=== PATIENT | female | born 1990 | race Two or more races ===

== ENCOUNTER 2022-05-13 06:03 | Inpatient (IN) | payer MEDICAID ==
[~2022-05-13] VITALS: Ht 170.2 cm; Wt 87.1 kg
[2022-05-13] MEDS ORDERED: BETAMETHASONE ACET (30mg/5ml) 5ml Vial 6mg/ml IM ONE (06:45)
[2022-05-13] MEDS ORDERED: PROMETHAZINE HCL 25 MG/ML 1ML IV PRN (06:45)
[2022-05-13] MEDS ORDERED: LACTATED RINGER'S 1,000 ML IV SCH (06:45)
[2022-05-13] MEDS ORDERED: LACT. RINGERS/OXYTOCIN 20UNITS 500 ML IV ONE ×2 (06:45→07:15)
[2022-05-13] MEDS ORDERED: LIDOCAINE 2%HCL (LOCAL ANESTH.) INJ 20ML MDV IJ PRN (06:45)
[2022-05-13] MEDS ORDERED: AMPICILLIN SOD 2GM INJ 2 GM in SODIUM CHL 0.9% 100 ML IV ONE (06:45)
[2022-05-13] MEDS ORDERED: BUTORPHANOL TARTRATE 2 MG/1 ML VIAL IV PRN ×2 (06:45)
[2022-05-13] MEDS ORDERED: TERBUTALINE SULFATE 1 MG/ML 1ML VIAL SC PRN (06:45)
[2022-05-13 07:51] LABS: Eosinophils # (auto) 0 10 ^3/uL (0-0.8); Hemoglobin 11.1 g/dL (12.2-16.2); Monocytes # (auto) 0.6 10 ^3/uL (0-1.3); Nucleated Red Blood Cells % 0.1 %; Red Blood Cells 4.16 10^6/uL (4.0-5.20)
[2022-05-13 07:54] LABS: Basophils # (auto) 0 10 ^3/uL (0-0.2); Basophils % (auto) 0.4 % (0.0-2.0); Hematocrit 33.6 % (36.0-46.0); Lymphocytes % (auto) 10.6 % (10.0-50.0); Mean Corpuscular Hemoglobin 26.6 pg (28.0-32.0); Mean Corpuscular Hgb Conc. 32.9 g/dL (32.0-36.0); Mean Corpuscular Volume 80.8 fL (80.0-100.0); Monocytes % (auto) 5.9 % (0.0-12.0); Neutrophils # (auto) 8.2 10 ^3/uL (1.6-8.6); Neutrophils % (auto) 83.1 % (37.0-80.0); White Blood Cell 9.8 10^3/uL (4.4-10.8)
[2022-05-13 08:04] LABS: Urine Bacteria NONE SEEN /hpf (None Seen); Urine Blood 2+ /uL (Negative); Urine Mucus FEW (None Seen); Urine Specific Gravity 1.023 (1.001-1.035); Urine WBC 13 /hpf (0 - 5)
[2022-05-13 08:09] LABS: Albumin 2.5 g/dL (3.4-5.0); Calcium 8.1 mg/dL (8.5-10.1); Potassium 3.3 mmol/L (3.5-5.1)
[2022-05-13 08:12] LABS: Alcohol, Urine < 3.0 mg/dL (0-10); Amphetamine Screen, Urine NEGATIVE (NEGATIVE); Barbiturate Scree,Urine NEGATIVE (NEGATIVE); Benzodiazephine Screen, Urine NEGATIVE (NEGATIVE); Cannabinoid Screen, Urine NEGATIVE (NEGATIVE); Cocaine Screen, Urine NEGATIVE (NEGATIVE); Opiate Scree,Urine NEGATIVE (NEGATIVE); Phencyclidine Screen, Urine NEGATIVE (NEGATIVE)
[2022-05-13 08:13] LABS: BUN/Creatinine Ratio 8.6; Bilirubin, Total 0.4 mg/dL (0.2-1.0); Total Protein 6.5 g/dL (6.4-8.2)
[2022-05-13 08:14] LABS: INR 0.95 (0.9-1.15); Partial Thromboplastin Time 33.9 sec (24.6-33.4)
[2022-05-13] MEDS ORDERED: fentaNYL CITRATE 100 MCG/2 ML VL ONE (08:59)
[2022-05-13] MEDS ORDERED: MORPHINE SULF PF 5 MG/10 ML VIAL ONE (08:59)
[2022-05-13] MEDS ORDERED: ePHEDrine SULFATE 50 MG/ML AMP IV ONE (09:00)
[2022-05-13] MEDS ORDERED: LIDOCAINE HCL 2 %PF INJ 10ML AMP IJ ONE (09:00)
[2022-05-13] MEDS ORDERED: NALOXONE HCL 0.4 MG/ML VIAL IV ONE (09:00)
[2022-05-13] MEDS ORDERED: ROPIVACAINE HCL 200 ML EPI SCH (09:00)
[2022-05-13] MEDS: PHISODERM TOP SOLN 240ML BTL TOP PRN (09:17)
[2022-05-13] MEDS: WITCH HAZEL-GLYCERIN PAD TOP PRN (09:17)
[2022-05-13] MEDS: DERMOPLAST 60ML BOTTLE TOP PRN (09:17)
[2022-05-13] MEDS ORDERED: diphenhdrAMINE HCL 50 MG/1 ML VL IV ONE (09:45)
[2022-05-13] MEDS ORDERED: NALOXONE HCL 0.4 MG/ML VIAL IV PRN ×2 (10:00)
[2022-05-13] MEDS ORDERED: HYDROmorphone HCL 2 MG/ML VL/or syr IV PRN ×2 (10:00)
[2022-05-13] MEDS ORDERED: ONDANSETRON HCL 4 MG/2 ML VIAL IV PRN ×2 (10:00)
[2022-05-13] MEDS ORDERED: AMPICILLIN INJ 1 GM in SODIUM CHL 0.9% 100 ML IV SCH (10:00)
[2022-05-13] MEDS ORDERED: NALBUPHINE HCL 10 MG/1ml INJECTION IV ONE (10:00)
[2022-05-13] MEDS ORDERED: diphenhdrAMINE HCL 50 MG/1 ML VL IV PRN ×2 (10:00)
[2022-05-13] MEDS ORDERED: METHYLERGONOVINE MALEATE 0.2 MG/ML AMP IM ONE (10:30)
[2022-05-13] MEDS ORDERED: ONDANSETRON ODT 4 MG TAB PO PRN (11:00)
[2022-05-13] MEDS ORDERED: FAMOTIDINE (10MG/ML) 2ML VL IV ONE (13:00)
[2022-05-13] MEDS ORDERED: CALCIUM CARB 500 MG CHEW TAB PO ONE (13:00)
[2022-05-13] MEDS: IBUPROFEN 600 MG TAB PO PRN ×2 (13:16→21:36)
[2022-05-13 13:38] VITALS: BP 131/71
[2022-05-13 15:00] VITALS: BP 135/75
[2022-05-13] MEDS: ACETAMINOPHEN 325 MG TAB PO PRN (17:11)
[2022-05-13 19:00] VITALS: BP 106/64
[2022-05-13] MEDS: DOCUSATE SOD 100 MG CAP PO SCH (21:36)
[2022-05-13 23:10] VITALS: BP 105/62
[2022-05-14 04:30] VITALS: BP 109/69
[2022-05-14] MEDS: ACETAMINOPHEN 325 MG TAB PO PRN ×4 (04:44→23:05)
[2022-05-14] MEDS ORDERED: diphenhdrAMINE HCL 25 MG CAP PO ONE (07:15)
[2022-05-14 07:26] VITALS: BP 104/59
[2022-05-14] MEDS: IBUPROFEN 600 MG TAB PO PRN ×3 (07:48→21:20)
[2022-05-14 08:06] LABS: RPR Non Reactive (Non Reactive)
[2022-05-14 10:33] VITALS: BP 111/68
[2022-05-14] MEDS: HYDROCORTISONE 2.5% TOPICAL CREAM 30GM TUBE TOP SCH ×2 (13:55→23:05)
[2022-05-14 14:39] VITALS: BP 110/65
[2022-05-14] MEDS ORDERED: diphenhdrAMINE HCL 25 MG CAP PO PRN (14:45)
[2022-05-14] MEDS ORDERED: PREN1TAB71 OR (16:28)
[2022-05-14] MEDS: WITCH HAZEL-GLYCERIN PAD TOP PRN (17:00)
[2022-05-14 19:00] VITALS: BP 110/55
[2022-05-14] MEDS: DOCUSATE SOD 100 MG CAP PO SCH (21:20)
[2022-05-14 23:00] VITALS: BP 118/75
[2022-05-15 04:00] VITALS: BP 129/80
[2022-05-15] MEDS: ACETAMINOPHEN 325 MG TAB PO PRN (04:07)
[2022-05-15] MEDS: IBUPROFEN 600 MG TAB PO PRN ×2 (05:05→11:10)
[2022-05-15] MEDS ORDERED: ACETAMINOPHEN/CODEINE#3 (300/30mg) TAB PO ONE (07:30)
[2022-05-15] MEDS: PHISODERM TOP SOLN 240ML BTL TOP PRN (08:20)
[2022-05-15] MEDS: WITCH HAZEL-GLYCERIN PAD TOP PRN (08:21)
[2022-05-15] MEDS: DERMOPLAST 60ML BOTTLE TOP PRN (08:21)
[2022-05-15 08:30] VITALS: BP 123/77
[2022-05-15 11:13] VITALS: BP 102/59
[2022-05-16 00:06] LABS: Rubella Antibodies, IgG 2.49 index (Immune >0.99)
== END 2022-05-15 13:30 | disposition home or self-care (01) | DRG 560 ==
LOC: LDRP 06:03 → OBSVTOIN 06:40 → LDRP 07:00
PROVIDERS: ADMIT Obstetrics & Gynecology; ATTEND Obstetrics & Gynecology
PROC: 10E0XZZ Delivery of Products of Conception, External Approach (ICD-10-PCS; principal; 2022-05-13)
PROC: 0KQM0ZZ Repair Perineum Muscle, Open Approach (ICD-10-PCS; 2022-05-13)
PROC: 0W8NXZZ Division of Female Perineum, External Approach (ICD-10-PCS; 2022-05-13)
DX: O42.913 Preterm premature rupture of membranes, unspecified as to length of time between rupture and onset of labor, third trimester (principal); Z37.0 Single live birth; O70.1 Second degree perineal laceration during delivery; Z3A.35 35 weeks gestation of pregnancy
CPT/HCPCS: 36415; 59025; 59409; 62282; 80053; 80307; 81001; 81002; 84112; 85025; 85610; 85730; 86592; 86703; 86706; 86762; 86850; 86900; 86901; 94760; 96360; 96361; 96365; 96366; G0378; J2590; J3490; Q0162